=== PATIENT | female | born 1935 | race African-American/Black ===

== ENCOUNTER 2021-02-07 20:12 | Emergency (ER) | payer MEDICARE ==
[~2021-02-07 20:12] MED LIST: ASPIRIN CHEWABL81 MG PO; ASPIRIN EC81 MG PO; CRESTOR40 MG PO; LIPITOR40 MG PO; NORVASC5 MG PO
[2021-02-07 22:40] LABS: BASOPHIL 0.2 % (0-2); EOSINOPHIL 1.5 % (0-7); HGB 13.6 g/dl (12.5-16.0); LYMPHOCYTE 22.9 % (15-48); MCH 28.8 pg (25.0-31.0); MCHC 32.4 g/dL (32.0-36.0); MCV 88.8 fL (78.0-100.0); MPV 9.3 fL (6.0-9.5); NEUTROPHIL 66.2 % (41-80); NRBC 0; PLT 215 K/uL (150-400); RBC 4.73 M/uL (4.20-5.40); WBC 8.2 K/uL (4.0-10.5)
[2021-02-07 22:56] LABS: BUN/CREAT RATIO (CALC) 16.2 RATIO; CREATININE 1.3 mg/dL (0.51-0.95); POTASSIUM 3.1 mmol/L (3.5-5.1)
== END 2021-02-07 23:02 | disposition home or self-care (01) ==
LOC: FER 20:12
PROVIDERS: Nurse Practitioner Family
DX: M79.604 Pain in right leg (principal); I25.2 Old myocardial infarction; H54.7 Unspecified visual loss; Z86.73 Personal history of transient ischemic attack (TIA), and cerebral infarction without residual deficits; W01.0XXA Fall on same level from slipping, tripping and stumbling without subsequent striking against object, initial encounter
CPT/HCPCS: 36415; 70450; 71045; 72125; 73522; 80048; 85025; 93005

== ENCOUNTER 2022-06-16 11:01 | Emergency (ER) | payer MEDICARE ==
[2022-06-16 12:44] LABS: BASOPHIL 0.3 % (0-2); EOSINOPHIL 0.2 % (0-7); HCT 41.5 % (37.0-47.0); HGB 13.2 g/dl (12.5-16.0); LYMPHOCYTE 9.4 % (15-48); MCH 28.1 pg (25.0-31.0); MCHC 31.8 g/dL (32.0-36.0); MCV 88.5 fL (78.0-100.0); MONOCYTE 9.4 % (0-12); MPV 9.7 fL (6.0-9.5); NEUTROPHIL 80.4 % (41-80); NRBC 0; PLT 201 K/uL (150-400); RBC 4.69 M/uL (4.20-5.40); RDW 14.6 % (11.5-14.0); WBC 10.6 K/uL (4.0-10.5)
[2022-06-16 12:53] LABS: INR 1.12 (0.9-1.2); PROTHROMBIN TIME 14.1 SECONDS (11.9-13.9); PTT 28.9 SECONDS (24.9-34.6)
[2022-06-16 13:04] LABS: ALBUMIN 2.8 g/dL (3.4-5.0); BILIRUBIN - TOTAL 0.5 mg/dL (0.2-1.0); BUN/CREAT RATIO (CALC) 17.1 RATIO; CREATININE 1.23 mg/dL (0.51-0.95); GLOBULIN (CALCULATION) 4.2 g/dL; POTASSIUM 3.5 mmol/L (3.5-5.1)
[2022-06-16 13:19] LABS: CORONAVIRUS 2019 SARS-COV-2 NEGATIVE (NEGATIVE); INFLUENZA A NAA NEGATIVE (NEGATIVE)
[2022-06-16 13:53] LABS: BILIRUBIN NEGATIVE (NEGATIVE); BLOOD 2+ Ery/uL (NEGATIVE); CLARITY CLEAR (CLEAR); COLOR YELLOW (YELLOW); GLUCOSE (U) NORMAL (NORMAL); LEUKOCYTES NEGATIVE Leu/uL (NEGATIVE); NITRITE NEGATIVE (NEGATIVE); PROTEIN 2+ mg/dL (NEGATIVE); SPECIFIC GRAVITY >=1.030 (1.001-1.030)
[2022-06-16 14:00] LABS: AMORPHOUS URATES CRYSTALS MODERATE; MUCOUS MODERATE
[2022-06-16 14:01] LABS: GRANULAR CASTS TRACE
== END 2022-06-16 16:50 | disposition home or self-care (01) ==
LOC: FER 11:01
PROVIDERS: Internal Medicine
DX: R10.11 Right upper quadrant pain (principal); I10 Essential (primary) hypertension; E78.5 Hyperlipidemia, unspecified; Z79.82 Long term (current) use of aspirin; Z79.899 Other long term (current) drug therapy; Z86.73 Personal history of transient ischemic attack (TIA), and cerebral infarction without residual deficits; Z20.822 Contact with and (suspected) exposure to COVID-19
CPT/HCPCS: 36415; 71045; 80053; 81001; 83690; 83880; 84145; 84484; 85025; 85610; 85730; 93005; U0002